=== PATIENT | female | born 1965 | race Caucasian/White ===

== ENCOUNTER → 2022-09-08 13:29 | Outpatient (BNVA) | payer OTHER, SELFPAY | PROVIDERS: PCP Family Medicine; Visit Provider Emergency Medicine | DX: N23 Unspecified renal colic (principal); N30.01 Acute cystitis with hematuria; R81 Glycosuria | CPT/HCPCS: 81000 ==

== ENCOUNTER → 2023-10-18 09:47 | Outpatient (BNVA) | payer OTHER, SELFPAY | PROVIDERS: PCP Family Medicine; Visit Provider Emergency Medicine | DX: R39.9 Unspecified symptoms and signs involving the genitourinary system (principal); Z20.828 Contact with and (suspected) exposure to other viral communicable diseases; J98.8 Other specified respiratory disorders; B97.89 Other viral agents as the cause of diseases classified elsewhere | CPT/HCPCS: 81000; 87086; 87420 ==